=== PATIENT | male | born 1940 | race Caucasian/White ===

== ENCOUNTER → 2016-08-26 | Outpatient (CLI) | payer OTHER, MEDICARE ==
[~2016-08-26] MED LIST: IOPAMIDOL (ISOVUE 370) 100 ML BTL IV ONE; LIDOCAINE 1% 30 ML SDV ONE; NA BICARBONATE 50 MEQ/50 ML VIAL ONE
== END ==
LOC: FIMAGING 12:22
PROVIDERS: ATTEND Orthopaedic Surgery
PROC: 3E0U3KZ Introduction of Other Diagnostic Substance into Joints, Percutaneous Approach (ICD-10-PCS; principal; 2016-08-26)
DX: M25.511 Pain in right shoulder (principal)
CPT/HCPCS: 23350; 73040; 73201; Q9967

== ENCOUNTER → 2017-12-08 | Outpatient (CLI) | payer OTHER, MEDICARE ==
[~2017-12-08] MED LIST changes: -LIDOCAINE 1% 30 ML SDV ONE; +LIDOCAINE 1% 300 MG/30 ML SDV ONE; -NA BICARBONATE 50 MEQ/50 ML VIAL ONE
== END ==
LOC: FIMAGING 09:48
PROVIDERS: ATTEND Orthopaedic Surgery
PROC: 3E0U3HZ Introduction of Radioactive Substance into Joints, Percutaneous Approach (ICD-10-PCS; principal; 2017-12-08)
DX: M25.812 Other specified joint disorders, left shoulder (principal); S46.812A Strain of other muscles, fascia and tendons at shoulder and upper arm level, left arm, initial encounter
CPT/HCPCS: 23350; 73040; 73201; Q9967